=== PATIENT | female | born 1985 | race Caucasian/White ===

== ENCOUNTER 2018-03-20 16:52 | Emergency (ER) | payer BC ==
[~2018-03-20] VITALS: Ht 167.6 cm; Wt 69.7 kg
[2018-03-20 17:04] VITALS: Ht 167.6 cm; Wt 69.7 kg
[2018-03-20 17:38] LABS: BASO % 0.3 %; BASO ABS # 0.02 K/uL (0-0.2); EOS % 0.5 %; EOS ABS # 0.04 K/uL (0-0.5); HEMATOCRIT 37.3 % (37-47); HEMOGLOBIN 12.7 g/dL (12.0-16.0); IG# 0.01 K/uL (0.00-0.02); LYMPH ABS # 2.06 K/uL (1.2-3.4); MEAN CELL VOLUME 83.1 fL (80-100); MEAN CORPUSCULAR HEMOGLOBIN 28.3 pg (25-34); MEAN PLATELET VOLUME 10.6 fL (7.4-10.4); MONO % 3.8 %; MONO ABS # 0.29 K/uL (0.11-0.59); NEUT % 68.3 %; NEUT ABS # 5.22 K/uL (1.4-6.5); PLATELET COUNT 176 K/uL (130-400); RED CELL DISTRIBUTION WIDTH CV 12.6 % (11.5-14.5); RED CELL DISTRIBUTION WIDTH SD 38.1 fL (36.4-46.3); WHITE BLOOD COUNT 7.64 K/uL (4.8-10.8)
[2018-03-20 18:02] LABS: CALCIUM 9.3 mg/dl (8.5-10.1); CREATININE 0.92 mg/dl (0.60-1.20); POTASSIUM 3.5 mmol/L (3.5-5.1)
--- NOTE | 2018-03-20 18:43 | DIAGNOSTIC IMAGING REPORT ---
ECTOPIC ULTRASOUND CLINICAL HISTORY: , VAGINAL BLEEDING COMPARISON STUDY: None. FINDINGS: Transabdominal and transvaginal scanning of the pelvis was performed. There is a single viable intrauterine gestation demonstrating a heart rate of 130 bpm. The yolk sac measures 3 mm. The crown-rump length is 0.82 cm consistent with a 6 week and 5 day intrauterine gestation. There is a moderate surrounding subchorionic hematoma measuring 3.9 x 3.0 x 1.7 cm along the fundus. No significant mass effect at this time. There ovaries are normal in size and demonstrates normal color flow. There are few small follicle/cysts within the bilateral ovaries. The uterus is retroflexed. There is a 6 mm round tubular structure adjacent to the left ovary which demonstrates an echogenic rim. This is likely a paraovarian cyst given the presence of an intrauterine rather than an ectopic . Small amount of slightly complex pelvic fluid. IMPRESSION: 1. Single viable 6 week and 5 day intrauterine gestation. heart rate was 130 bpm. 2. Moderate subchorionic hematoma along the fundal region without associated mass effect along the gestational sac. Consider 0.5-1 week ultrasound follow-up to ensure stability/resolution. 3. Small amount of slight complex pelvic fluid. 4. A 6 mm round to the structure adjacent to the left ovary which demonstrates an echogenic rim. This is likely a paraovarian cyst given the presence of an intrauterine rather than an ectopic . However, correlation with beta hCG and follow-up ultrasound and 0.5-1 weeks is recommended for confirmation. Electronically signed by: Hever Naranjo M.D. 03/20/2018 6:41 PM Dictated Date/Time: 03/20/2018 6:35 PM
[2018-03-20 19:03] VITALS: O2SAT 100
[2018-03-20 19:08] VITALS: BP 119/67; PULSE 71; TEMP 37.1; O2SAT 100
--- NOTE | 2018-03-20 19:09 | EMERGENCY ROOM VISIT NOTE ---
ED Visit Note First contact with patient: 17:07 CHIEF COMPLAINT: Cramping and vaginal bleeding today HISTORY OF PRESENT ILLNESS: Patient is a roughly 6.5 week 32-year -old female who presents to the emergency department for evaluation of suprapubic cramping and vaginal bleeding today. Patient reports that her last menstrual period was 02/28/2018. She is scheduled for her nurse intake visit with obstetrics on Sunday 03/25. Patient states that she has had some intermittent pelvic discomfort and cramping over the last couple of weeks. Today, she was active playing with her 2-year-old daughter and then was at the grocery store doing the grocery stopping. When she got home, she passed roughly a teaspoon of bright red blood. She has continued to have some light spotting and continues to have some mild cramping which she rates a 2/10. Most recent intercourse was a couple of days ago. She otherwise denies any injuries or falls. She denies any urinary symptoms. Patient does report that she is blood type a negative, and requires RhoGam with pregnancies. REVIEW OF SYSTEMS: Review of systems as per HPI. All other systems reviewed were negative. 10 systems reviewed. PMH: Electronic medical records are reviewed and summarized as above/below. See Problem List. SOCIAL HISTORY: Patient lives at home with her and daughter. Employed. Denies tobacco or alcohol use.. PHYSICAL EXAM: Vital Signs: Reviewed Nurse's notes. CONSTITUTIONAL: Patient is a pleasant, well-appearing 32-year-old female who is awake and alert and in no acute distress. EYES: Pupils equal, round, reactive to light and accommodation. EOMs intact without nystagmus. Sclera are anicteric. ENT: Tympanic membranes intact, with normal landmarks. External canals are clear. Oral and nasopharynx are clear. Mucous membranes are moist, no lesions , tongue and gums appear normal. CARDIOVASCULAR: Regular rate and rhythm. Peripheral pulses easily palpable. RESPIRATORY: Breath sounds equal and clear to auscultation without wheezes, rales, or rhonchi heard. Full and equal chest expansion without accessory muscle use or retractions. ABDOMEN: Bowel sounds are present. Abdomen is soft, scaphoid, nontender to percussion and palpation throughout. No guarding, rebound or rigidity. INTEGUMENTARY: No lesions or rash, normal skin turgor. LYMPH: No lymphadenopathy. EMERGENCY DEPARTMENT COURSE: The patient was seen and assessed as above. She has no old records at this facility for review. She is roughly 6-1/2 weeks by her last menstrual period. She is known to be blood type A-. She presents the emergency department with a small amount of vaginal bleeding with some cramping this afternoon. She is hemodynamically stable. IV lock was initiated and laboratory studies were collected including CBC with differential , BMP, quantitative hCG and urinalysis. Type and screen and RhoGam were ordered. Pelvic ultrasound was performed to evaluate for intrauterine and source of the vaginal bleeding. Laboratory studies reveal a stable H&H at 12.7 and 37.3. Platelet count 176, 000. Electrolytes and renal functions are normal. Quantitative hCG is 26,200, which is consistent with her dates. Urine sample notes microscopic blood only, likely contamination from her vaginal bleeding and not indicative of infection. Blood type is confirmed as A-. Pelvic ultrasound confirmed a single viable intrauterine gestation measuring 6 weeks 5 days with confirmed cardiac activity at 130 bpm. There was a moderate subchorionic hematoma along the fundal region without mass-effect on the gestational sac. There was also noted to be a 6 mm structure adjacent to the left ovary likely indicative of a paraovarian cyst. Statistically felt to be unlikely an ectopic with a simultaneous intrauterine . Follow-up ultrasound was recommended to evaluate left ovarian structure and the subchorionic hematoma. All laboratory and diagnostic imaging studies were reviewed with attending physician, and discussed with the patient at length. She was reassured. She was administered RhoGam. She was given bleeding/ectopic precautions, and instructed to contact OB tomorrow to set up a follow-up appointment sooner at the end this Wednesday. Medication reconciliation: I attest that I have personally reviewed the patient' s current medication list. Blood pressure screening : Patient was found to have normal blood pressure on screening and does not require follow-up. Differential diagnoses entertained included first trimester vaginal bleeding, menses, , ectopic , subchorionic hemorrhage, vaginal laceration, spontaneous miscarriage, threatened , among others. ECTOPIC ULTRASOUND CLINICAL HISTORY: , VAGINAL BLEEDING COMPARISON STUDY: None. FINDINGS: Transabdominal and transvaginal scanning of the pelvis was performed. There is a single viable intrauterine gestation demonstrating a heart rate of 130 bpm. The yolk sac measures 3 mm. The crown-rump length is 0.82 cm consistent with a 6 week and 5 day intrauterine gestation. There is a moderate surrounding subchorionic hematoma measuring 3.9 x 3.0 x 1.7 cm along the fundus. No significant mass effect at this time. There ovaries are normal in size and demonstrates normal color flow. There are few small follicle/cysts within the bilateral ovaries. The uterus is retroflexed. There is a 6 mm round tubular structure adjacent to the left ovary which demonstrates an echogenic rim. This is likely a paraovarian cyst given the presence of an intrauterine rather than an ectopic . Small amount of slightly complex pelvic fluid. IMPRESSION: 1. Single viable 6 week and 5 day intrauterine gestation. heart rate was 130 bpm. 2. Moderate subchorionic hematoma along the fundal region without associated mass effect along the gestational sac. Consider 0.5-1 week ultrasound follow-up to ensure stability/resolution. 3. Small amount of slight complex pelvic fluid. 4. A 6 mm round to the structure adjacent to the left ovary which demonstrates an echogenic rim. This is likely a paraovarian cyst given the presence of an intrauterine rather than an ectopic . However, correlation with beta hCG and follow-up ultrasound and 0.5-1 weeks is recommended for confirmation. Problem List Medical Problems: (1) Kidney stones Status: Chronic (2) Stomach problems Status: Chronic Allergies Coded Allergies: No Known Allergies (Unverified , 03/20/18) Vital Signs Date Time Temp Pulse Resp B/P (MAP) Pulse Ox O2 Delivery O2 Flow Rate FiO2 03/20/18 20:00 36.9 70 17 116/66 100 03/20/18 19:31 37.1 70 18 111/66 100 03/20/18 19:08 37.1 71 18 119/67 100 03/20/18 19:03 78 16 121/64 100 Room Air 03/20/18 17:04 37.0 74 18 126/83 100 Room Air Laboratory Results 03/20/18 17:25 Red Blood Count 4.49, Mean Corpuscular Volume 83.1, Mean Corpuscular Hemoglobin 28.3, Mean Corpuscular Hemoglobin Concent 34.0, Mean Platelet Volume 10.6, Neutrophils (%) (Auto) 68.3, Lymphocytes (%) (Auto) 27.0, Monocytes (%) (Auto) 3.8, Eosinophils (%) (Auto) 0.5, Basophils (%) (Auto) 0.3, Neutrophils # (Auto) 5.22, Lymphocytes # (Auto) 2.06, Monocytes # (Auto) 0.29, Eosinophils # (Auto) 0.04, Basophils # (Auto) 0.02 03/20/18 17:25 Test 03/20/18 17:25 White Blood Count 7.64 K/uL (4.8-10.8) Red Blood Count 4.49 M/uL (4.2-5.4) Hemoglobin 12.7 g/dL (12.0-16.0) Hematocrit 37.3 % (37-47) Mean Corpuscular Volume 83.1 fL (80-100) Mean Corpuscular Hemoglobin 28.3 pg (25-34) Mean Corpuscular Hemoglobin Concent 34.0 g/dl (32-36) Platelet Count 176 K/uL (130-400) Mean Platelet Volume 10.6 fL (7.4-10.4) Neutrophils (%) (Auto) 68.3 % Lymphocytes (%) (Auto) 27.0 % Monocytes (%) (Auto) 3.8 % Eosinophils (%) (Auto) 0.5 % Basophils (%) (Auto) 0.3 % Neutrophils # (Auto) 5.22 K/uL (1.4-6.5) Lymphocytes # (Auto) 2.06 K/uL (1.2-3.4) Monocytes # (Auto) 0.29 K/uL (0.11-0.59) Eosinophils # (Auto) 0.04 K/uL (0-0.5) Basophils # (Auto) 0.02 K/uL (0-0.2) RDW Standard Deviation 38.1 fL (36.4-46.3) RDW Coefficient of Variation 12.6 % (11.5-14.5) Immature Granulocyte % (Auto) 0.1 % Immature Granulocyte # (Auto) 0.01 K/uL (0.00-0.02) Urine Color YELLOW Urine Appearance CLEAR (CLEAR) Urine pH 5.5 (4.5-7.5) Urine Specific [place] 1.012 (1.000-1.030) Urine Protein NEG (NEG) Urine Glucose (UA) NEG (NEG) Urine Ketones NEG (NEG) Urine Occult Blood 2+ (NEG) Urine Nitrite NEG (NEG) Urine Bilirubin NEG (NEG) Urine Urobilinogen NEG (NEG) Urine Leukocyte Esterase NEG (NEG) Urine WBC (Auto) 0 /hpf (0-5) Urine RBC (Auto) 0-4 /hpf (0-4) Urine Hyaline Casts (Auto) 0 /lpf (0-5) Urine Epithelial Cells (Auto) 10-20 /lpf (0-5) Urine Bacteria (Auto) NEG (NEG) Anion Gap 7.0 mmol/L (3-11) Est Creatinine Clear Calc Drug Dose 81.4 ml/min Estimated GFR () 94.8 Estimated GFR (Non- 81.8 BUN/Creatinine Ratio 18.9 (10-20) Calcium Level 9.3 mg/dl (8.5-10.1) Human Chorionic Gonadotropin, Quant 18341 mIU/mL Departure Information Impression Primary Impression: Subchorionic hematoma in first trimester Additional Impressions: First trimester Left ovarian cyst Referrals Heydi Garcia M.D. (PCP) Patient Instructions My [facility] Additional Instructions Acetaminophen(Tylenol) may be used for fever or pain. Use 1000mg every six hours as needed. Avoid using more than 3000mg in a 24 hour period. Rest and avoid any heavy lifting or strenuous activity. Strict vaginal rest-no tampons, douching or intercourse. Drink plenty of fluids. Diet as tolerated. Follow up with [facility] by phone tomorrow to notify them of your ED visit and outcome and to schedule a follow-up appointment for this week, as you will likely need repeat ultrasound. Return to the ED for worsening pain, heavier bleeding (soaking a pad in an hour or less, passing clots larger than your fist), lightheadedness, dizziness, passing out, worsening of your condition or as needed. Problem Qualifiers Primary Impression: Subchorionic hematoma in first trimester Fetus number: single or unspecified fetus Qualified Codes: O41.8X10 - Other specified disorders of amniotic fluid and membranes, first trimester, not applicable or unspecified; O46.8X1 - Other antepartum hemorrhage, first trimester
[2018-03-20 19:31] VITALS: BP 111/66; PULSE 70; TEMP 37.1; O2SAT 100
[2018-03-20 20:00] VITALS: BP 116/66; PULSE 70; TEMP 36.9; O2SAT 100
== END 2018-03-20 20:04 | disposition home or self-care (01) ==
LOC: C.EDB 16:54 → C.EDC 20:04
DX: O20.8 Other hemorrhage in early pregnancy (principal); Z3A.01 Less than 8 weeks gestation of pregnancy; N83.202 Unspecified ovarian cyst, left side